=== PATIENT | male | born 1960 ===

== ENCOUNTER 2025-08-03 20:03 | Emergency (ER) | payer BC, MEDICARE ==
[2025-08-03] MEDS ORDERED: Sodium Chloride 0.9% 10 ML Syringe FLUSH PRN (20:25)
[2025-08-03 20:36] LABS: BASOPHILS PERCENT AUTO 0.1 % (0.0-1.0); EOSINOPHILS PERCENT AUTO 1.7 % (1.0-3.0); LYMPHOCYTES PERCENT AUTO 21.2 % (20.5-50.1); MONOCYTES PERCENT AUTO 7.9 % (2-8); NEUTROPHILS PERCENT AUTO 69.1 % (42.2-75.2); PLATELET COUNT,PLT 129 10^3/uL (150-450); RED BLOOD CELL COUNT 5.92 10^6/uL (4.6-6.2); WHITE BLOOD CELL COUNT,WBC 12.4 10^3/uL (5.0-10.0)
[2025-08-03 20:50] LABS: BLOOD UREA NITROGEN,BUN 22.0 mg/dL (7-18); CARBON DIOXIDE,CO2 30.0 mmol/L (21-32); CHLORIDE,CL 104.0 mmol/L (98-107); CREATININE 0.92 mg/dL (0.70-1.30); EST CRCL DRUG DOSING (CG) 90.47 mL/min; ESTIMATED GFR 92.0 mL/min (>=60); GLUCOSE RANDOM 86.0 mg/dL (70-99); POTASSIUM,K 3.9 mmol/L (3.5-5.1); SODIUM,NA 141.0 mmol/L (136-145)
== END 2025-08-03 21:05 | disposition home or self-care (01) ==
LOC: DL.ED 20:03
DX: I49.1 Atrial premature depolarization (principal); I45.10 Unspecified right bundle-branch block; I44.4 Left anterior fascicular block; Z88.5 Allergy status to narcotic agent
CPT/HCPCS: 36415; 80048; 83735; 85025; 93005; 99285